=== PATIENT | female | born 1975 | race Caucasian/White ===

== ENCOUNTER 2022-09-09 00:22 | Outpatient (CLI) | payer BC, SELFPAY ==
--- NOTE | 2022-09-09 07:30 | DI.US_ITS ---
Exam(s) US NEEDLE LOCAL OTHER WO RAD EXAM: US NEEDLE LOCAL OTHER WO RAD CLINICAL HISTORY: thyroid nodule tr 3 >2.5c,ultrasound guided bx,e04.2,multi nodular thyroid. COMPARISON: No exams were available for comparison TECHNIQUE: Ultrasound guidance provided for ultrasound-guided FNA of left thyroid nodule. FINDINGS: Three passes were performed. Images reveal the needle in the nodule of concern. IMPRESSION: Successful Ultrasound-guided FNA. DATA REPOSITORY:
--- NOTE | 2022-09-09 12:45 | PAPNONF_PTH ---
PATIENT: Carolee Carmona LOC: [facility] U#:[id number] AGE/SX: 47/F ROOM: RE09/09/[address]: Trevon Fisher MD : [id number] BED: DIS: 09/09/2022 SPEC #: [id number] RECD: 09/09/22 12:59 STATUS: [email or web address] REQ #: [id number] MERE: 09/09/22 12:[address]: Trevon Fisher DEPT: [facility] Cytology RECD BY: Dana Ball ENTERED: 09/09/22 13:00 SP TYPE: PAPNONF TIFFANIE DR: Tiana Cornejo Tissues: 1 - BODY FLUID CYTO-FINE NEEDLE [facility] Procedures: BODY FLUID CYTO-FINE NEEDLE [facility]IR[facility] Comments: [id number] (PATH FNA CONSULT) (REFRIGERATED)
--- NOTE | 2022-09-09 12:59 | OPPNE_ITS ---
Date of service: 09/09/22 Time of Service: 12:59 Procedure Note Date of procedure: 09/09/22 Procedure: Ultrasound-guided FNA, left thyroid nodule, pathology present Surgeon/Proceduralist/Physician: Trevon Fisher Procedure Diagnosis: Left thyroid nodule Procedure Indications: The patient has a left-sided thyroid nodule that was discovered incidentally. This meets criteria for biopsy. Options were explained to the patient regarding further management. Risks and benefits as well as the procedure were discussed at length. Consent was obtained prior to performance.. Procedure Description: The patient was positioned in supine position with her head extended. Ultrasound was used to localize the left thyroid nodule, and then the patient was prepped and draped in appropriate fashion. 1% lidocaine with 1/100,000 epinephrine was injected into the skin and subcutaneous tissues overlying the mass and then a 25-gauge needle advanced under ultrasound guidance into the nodule. This was withdrawn and the specimen examined by pathology. Cellular adequacy was felt to be present. As such, 2 additional passes for potential Afirma testing were then made. The patient tolerated the procedure well. There is no significant bleeding. Sterile dressing was applied. The patient was then allowed to sit and then ambulate. Her vital signs remained stable. She will remove the bandage tonight and not replace it. She will call with any signs of infection or if she does not hear from me with regard to pathology within 1 week . She may use ibuprofen or Tylenol for any discomfort. She had no further questions. She is comfortable with the plan.
== END 2022-09-09 00:42 ==
LOC: DI 00:22
PROVIDERS: PCP Physician Assistant Medical; Visit Provider Otolaryngology
DX: E04.2 Nontoxic multinodular goiter (principal); R89.6 Abnormal cytological findings in specimens from other organs, systems and tissues
CPT/HCPCS: 10005; 76942; 88104